=== PATIENT | female | born 1970 | race Caucasian/White ===

== ENCOUNTER 2016-06-26 16:48 | Inpatient (IN) | payer OTHER ==
[~2016-06-26] VITALS: Ht 162.6 cm; Wt 63.8 kg
[2016-06-26] MEDS ORDERED: OPTIRAY 350 100 ML VIAL HMH IV ONE (16:49)
[2016-06-26] MEDS ORDERED: ASPIRIN 81 MG CHEW TAB ONE (17:22)
[2016-06-26] MEDS ORDERED: SODIUM CHLORIDE 0.9% 1,000 ML ONE (18:34)
[2016-06-26] MEDS ORDERED: NEB-XOPENEX 1.25 MG/3 ML INH PRN (22:15)
[2016-06-26] MEDS ORDERED: MAG HYDROX 30 ML UDC PO PRN (22:15)
[2016-06-26] MEDS ORDERED: BISACODYL 10 MG SUPP RECTAL PRN (22:15)
[2016-06-26] MEDS ORDERED: SALINE FLUSH 10 ML FLUSH PRN (22:15)
[2016-06-26] MEDS ORDERED: ALU/MAG/SIM 30 ML UDC PO PRN (22:15)
[2016-06-26] MEDS ORDERED: ONDANSETRON 4 MG VIAL IV PRN (22:15)
[2016-06-26] MEDS ORDERED: BISACODYL EC 5 MG TAB PO PRN (22:15)
[2016-06-26] MEDS ORDERED: ZOLPIDEM 5 MG TAB PO PRN (22:15)
[2016-06-26] MEDS: Atorvastatin 10 MG TAB PO SCH (23:09)
[2016-06-26] MEDS: ACETAMINOPHEN 325 MG TAB PO PRN (23:10)
[2016-06-26] MEDS: ZOLPIDEM 5 MG TAB PO SCH (23:10)
[2016-06-26 23:15] VITALS: BP_SYST 130; BP_SYST 132; RESP 16; TEMP 97.8; Ht 162.6 cm; Wt 63.8 kg
[2016-06-27] VITALS (9 sets, daily range): BP systolic 86–162; RESP 16–20; TEMP 97.2–98.6
[2016-06-27] MEDS: SODIUM CHLORIDE 0.9% FLUSH BAG 500 ML IV SCH (04:33)
[2016-06-27] MEDS: LEVOTHYROXINE 0.112 MG TAB PO SCH (06:16)
[2016-06-27] MEDS: BUPROPION XL 150 MG TAB PO SCH (08:16)
[2016-06-27] MEDS: CHOLECALCIFEROL 1,000 UNITS TAB PO SCH (08:16)
[2016-06-27] MEDS: SALINE FLUSH 10 ML FLUSH SCH ×2 (08:16→20:12)
[2016-06-27] MEDS: BUSPIRONE HCL 10 MG TAB PO SCH ×2 (08:16→20:11)
[2016-06-27] MEDS ORDERED: Furosemide 20 MG/2 ML VIAL IV SCH ×2 (09:00→16:00)
[2016-06-27] MEDS: ACETAMINOPHEN 325 MG TAB PO PRN ×2 (10:50→20:16)
[2016-06-27] MEDS ORDERED: LISINOPRIL 20 MG TAB PO ONE (13:00)
[2016-06-27] MEDS: Ibuprofen 400 MG TAB PO PRN (13:04)
[2016-06-27] MEDS ORDERED: Furosemide 40 MG/4 ML VIAL IV SCH (16:00)
[2016-06-27] MEDS: ACETAMIN/BUTALB/CAFF PO PRN (16:11)
[2016-06-27] MEDS: Furosemide 40 MG/4 ML VIAL IV SCH (17:00)
[2016-06-27] MEDS: MORPHINE 2 MG/ML SYR IV PRN (18:34)
[2016-06-27] MEDS: Atorvastatin 10 MG TAB PO SCH (20:11)
[2016-06-27] MEDS: ZOLPIDEM 5 MG TAB PO SCH (20:11)
[2016-06-27] MEDS ORDERED: ZOLPIDEM 5 MG TAB PO SCH (21:00)
[2016-06-27] MEDS ORDERED: Carvedilol 3.125 MG TAB PO SCH (21:00)
[2016-06-28] MEDS: MORPHINE 2 MG/ML SYR IV PRN ×2 (02:51→14:26)
[2016-06-28 03:48] VITALS: BP_SYST 115; RESP 16; TEMP 97.7
[2016-06-28] MEDS: SODIUM CHLORIDE 0.9% FLUSH BAG 500 ML IV SCH ×2 (03:50→10:14)
[2016-06-28] MEDS: LEVOTHYROXINE 0.112 MG TAB PO SCH (06:04)
[2016-06-28 07:00] VITALS: BP_SYST 119; RESP 16; TEMP 97.8
[2016-06-28] MEDS ORDERED: KCL CR 20 MEQ TAB PO ONE (07:45)
[2016-06-28] MEDS ORDERED: MISSING DOSE XX ONE ×2 (08:35→14:50)
[2016-06-28] MEDS ORDERED: Carvedilol 3.125 MG TAB PO SCH (09:00)
[2016-06-28] MEDS ORDERED: MAGNESIUM SULF 1 GM/100 ML 100 ML IV ONE (09:40)
[2016-06-28] MEDS: SALINE FLUSH 10 ML FLUSH SCH ×2 (09:44→21:00)
[2016-06-28] MEDS: BUPROPION XL 150 MG TAB PO SCH (09:44)
[2016-06-28] MEDS: Furosemide 40 MG/4 ML VIAL IV SCH (09:44)
[2016-06-28] MEDS: LISINOPRIL 20 MG TAB PO SCH (09:44)
[2016-06-28] MEDS: Carvedilol 6.25 MG TAB PO SCH ×2 (09:45→20:57)
[2016-06-28] MEDS: CHOLECALCIFEROL 1,000 UNITS TAB PO SCH (09:45)
[2016-06-28] MEDS: SPIRONOLACTONE 25 MG TAB PO SCH (09:45)
[2016-06-28] MEDS: BUSPIRONE HCL 10 MG TAB PO SCH ×2 (09:45→20:57)
[2016-06-28] MEDS: Ibuprofen 400 MG TAB PO PRN (09:54)
[2016-06-28] MEDS ORDERED: CEFTRIAXONE 1 GM in SODIUM CHLORIDE 0.9% 50 ML IV ONE (11:00)
[2016-06-28 12:06] VITALS: BP_SYST 102; RESP 16; TEMP 97.4
[2016-06-28] MEDS: KCL CR 10 MEQ CAP PO SCH (14:00)
[2016-06-28] MEDS: SIMETHICONE 80 MG CHEW TAB PO PRN ×2 (15:12→20:57)
[2016-06-28 15:29] VITALS: BP_SYST 125; RESP 18; TEMP 97.5
[2016-06-28 19:54] VITALS: BP_SYST 117; RESP 18; TEMP 97.6
[2016-06-28] MEDS: Atorvastatin 10 MG TAB PO SCH (20:57)
[2016-06-28] MEDS: ZOLPIDEM 5 MG TAB PO SCH (20:57)
[2016-06-28 23:10] VITALS: BP_SYST 111; RESP 18; TEMP 97.7
[2016-06-29 03:31] VITALS: BP_SYST 105; RESP 18; TEMP 98.3
[2016-06-29] MEDS: SODIUM CHLORIDE 0.9% FLUSH BAG 500 ML IV SCH (06:07)
[2016-06-29] MEDS: LEVOTHYROXINE 0.112 MG TAB PO SCH (06:17)
[2016-06-29 07:52] VITALS: BP_SYST 115; RESP 18; TEMP 97.8
[2016-06-29] MEDS: SALINE FLUSH 10 ML FLUSH SCH (08:39)
[2016-06-29] MEDS: BUSPIRONE HCL 10 MG TAB PO SCH (08:39)
[2016-06-29] MEDS: Carvedilol 6.25 MG TAB PO SCH (08:39)
[2016-06-29] MEDS ORDERED: MISSING DOSE XX ONE (08:40)
[2016-06-29] MEDS: LISINOPRIL 20 MG TAB PO SCH (08:40)
[2016-06-29] MEDS: CHOLECALCIFEROL 1,000 UNITS TAB PO SCH (08:40)
[2016-06-29] MEDS: SPIRONOLACTONE 25 MG TAB PO SCH (08:40)
[2016-06-29] MEDS: BUPROPION XL 150 MG TAB PO SCH (08:53)
[2016-06-29] MEDS ORDERED: Furosemide 40 MG/4 ML VIAL IV SCH (09:00)
[2016-06-29] MEDS ORDERED: CEFTRIAXONE 1 GM in SODIUM CHLORIDE 0.9% 50 ML IV SCH (09:00)
[2016-06-29] MEDS: KCL CR 10 MEQ CAP PO SCH (10:18)
[2016-06-29] MEDS: ACETAMIN/BUTALB/CAFF PO PRN (12:00)
[2016-06-29 12:03] VITALS: BP_SYST 99; RESP 18; TEMP 98.4
[2016-06-29 14:38] VITALS: BP_SYST 99; RESP 18; TEMP 98.4
== END 2016-06-29 15:27 | disposition home or self-care (01) | DRG 291 ==
LOC: ENRESERVTM → ENRESERVDT → ER 16:48 → EMR 21:07 → ENPENDDIS 21:07 → PCU 22:13
PROVIDERS: ADMIT Internal Medicine; ATTEND Internal Medicine
CPT/HCPCS: 36415; 71010; 71260; 80048; 80053; 81001; 82550; 82553; 83735; 83880; 84439; 84443; 84484; 85025; 85610; 85730; 93005; 93306; 94640; 94799; 96360; 99233